=== PATIENT | male | born 1970 | race Caucasian/White ===

== ENCOUNTER → 2017-06-15 | Outpatient (CLI) | payer BC | END | disposition home or self-care (01) | LOC: C.LABSPEC 17:47 | PROVIDERS: ATTEND Urology | DX: N20.0 Calculus of kidney (principal) ==

== ENCOUNTER → 2017-06-17 | Outpatient (CLI) | payer BC ==
[~2017-06-17] VITALS: Ht 190.5 cm; Wt 168.3 kg
[~2017-06-17] MED LIST: AMLO-110 PO; DULO-24 PO; HYDR-5688 PO; RANI150T85 PO; TAMS0.4C38 PO; VALS40TA2 PO
[2017-06-17 08:34] VITALS: Ht 190.5 cm; Wt 168.3 kg
--- NOTE | 2017-06-17 09:13 | PAT Medication Instructions ---
Service Date Jun 17, 2017. Current Home Medication List Amlodipine (Norvasc), 5 MG PO QAM Duloxetine HCl (Cymbalta), 1 CAP PO QAM Hydrocodone/Acetaminophen 5MG/325MG ([place] 5MG/325MG), 1 TABLET PO QD PRN for Pain Ranitidine (Zantac), 150 MG PO QAM Tamsulosin Hcl (Flomax), 0.4 MG PO QAM Valsartan (Diovan), 1 TAB PO QAM Medication Instructions For Your Scheduled Surgery - Hold the following medications the morning of surgery: Valsartan (Diovan), 1 TAB PO QAM - Take the following medications the morning of surgery with a sip of water: Amlodipine (Norvasc), 5 MG PO QAM Duloxetine HCl (Cymbalta), 1 CAP PO QAM Hydrocodone/Acetaminophen 5MG/325MG ([place] 5MG/325MG), 1 TABLET PO QD PRN for Pain (if needed, can be taken up to four hours before surgery) Ranitidine (Zantac), 150 MG PO QAM Tamsulosin Hcl (Flomax), 0.4 MG PO QAM - Take the following medications as scheduled the night before surgery: Hydrocodone/Acetaminophen 5MG/325MG ([place] 5MG/325MG), 1 TABLET PO QD PRN for Pain (if needed) If you have any questions please call us at [phone] or [phone] or [phone]
--- NOTE | 2017-06-17 10:01 | DIAGNOSTIC IMAGING REPORT ---
CHEST 2 VIEWS ROUTINE CLINICAL HISTORY: Preoperative chest. Nephrolithiasis. COMPARISON STUDY: No previous studies for comparison. FINDINGS: The cardiac and mediastinal contours are normal. There is no evidence of focal pulmonary consolidation. There is no evidence of failure. No pleural effusions are visualized.[ IMPRESSION: No active disease in the chest. Electronically signed by: Derek Mena M.D. 06/17/2017 10:00 AM Dictated Date/Time: 06/17/2017 10:00 AM
--- NOTE | 2017-06-17 10:03 | DIAGNOSTIC IMAGING REPORT ---
KUB CLINICAL HISTORY: NEPHROLITHIASIS COMPARISON STUDY: No previous studies for comparison. FINDINGS: There is no pathologic bowel dilatation. No renal calculi are visualized on conventional radiographic imaging. There is a nonspecific 4.5 mm calcification within the left pelvic basin. IMPRESSION: 1. No evidence of pathologic bowel dilatation 2. No renal calculi identified 3. Nonspecific 4.5 mm left pelvic basin calcification. Electronically signed by: Derek Mena M.D. 06/17/2017 10:01 AM Dictated Date/Time: 06/17/2017 10:00 AM
== END | disposition home or self-care (01) ==
LOC: C.RAD 08:00 → EDSTATUS 06-23 08:45
PROVIDERS: ATTEND Urology
DX: Z01.818 Encounter for other preprocedural examination (principal); N20.0 Calculus of kidney

== ENCOUNTER → 2017-06-30 | Outpatient (CLI) | payer BC ==
[~2017-06-30] MED LIST changes: -RANI150T85 PO; +ZNTT/150 PO
--- NOTE | 2017-06-30 09:07 | DIAGNOSTIC IMAGING REPORT ---
RENAL ULTRASOUND CLINICAL HISTORY: Nephrolithiasis. COMPARISON STUDY: [facility]UB June 17, 2017. TECHNIQUE: Sonography of the kidneys and the urinary bladder was performed. FINDINGS: This exam is compromised by suboptimal penetration. The right kidney measures 11 x 6.4 x 6.2 cm and the left measures 12.2 x 6.5 x 6.7 cm. Renal echogenicity, size and cortical thickness are normal. There is no hydronephrosis. No renal mass or calculus is identified by sonography. Bladder is unremarkable. Both ureteral jets were identified. IMPRESSION: 1. Normal sonographic appearance of the kidneys. No hydronephrosis. 2. Study mildly compromised by suboptimal penetration. Electronically signed by: Valdez Duenas M.D. 06/30/2017 9:06 AM Dictated Date/Time: 06/30/2017 9:05 AM
== END | disposition home or self-care (01) ==
LOC: C.ULTR 08:26
PROVIDERS: ATTEND Urology
DX: N20.0 Calculus of kidney (principal)

== ENCOUNTER → 2017-06-30 | Outpatient (CLI) | payer BC | END | disposition home or self-care (01) | LOC: C.LABSPEC 17:23 | PROVIDERS: ATTEND Urology | DX: N20.0 Calculus of kidney (principal) ==